=== PATIENT | male | born 1960 | race Caucasian/White ===

== ENCOUNTER 2017-07-11 15:39 | Emergency (ER) | payer MEDICAID ==
[~2017-07-11] VITALS: Ht 185.4 cm; Wt 80.0 kg
[2017-07-11 15:41] VITALS: BP 141/94
[2017-07-11 16:10] LABS: BASOPHILS # (AUTO) 0.09 x10^3/uL (0-0.1); BASOPHILS % (AUTO) 1 % (0-1); EOSINOPHILS # (AUTO) 0.08 x10^3/uL (0-0.4); EOSINOPHILS % (AUTO) 1 % (1-7); LYMPHOCYTES # (AUTO) 2.48 x10^3/uL (1-3.4); LYMPHOCYTES % (AUTO) 28 % (22-44); MD NO; MEAN CORPUSCULAR HEMOGLOBIN 33.8 pg (27.5-34.5); MEAN CORPUSCULAR HGB CONC 34.4 g/dL (33.2-36.2); MEAN CORPUSCULAR VOLUME 98.4 fL (81-97); MEAN PLATELET VOLUME 6.4 fL (7.4-10.4); MONOCYTES # (AUTO) 0.92 x10^3/uL (0.2-0.8); MONOCYTES % (AUTO) 10 % (2-9); NEUTROPHILS # (AUTO) 5.37 x10^3/uL (1.8-6.8); NEUTROPHILS % (AUTO) 60 % (42-75); PLATELET COUNT 412 x10^3/uL (130-400); RED BLOOD COUNT 4.71 x10^6/uL (4.38-5.82); RED CELL DISTRIBUTION WIDTH 12.8 % (9.4-14.8)
[2017-07-11 16:21] LABS: ANION GAP 10 mmol/L (5-15); CALCIUM 8.9 mg/dL (8.5-10.1); CHLORIDE 102 mmol/L (98-107); CREATININE 1.58 mg/dL (0.7-1.3)
== END 2017-07-11 17:50 | disposition home or self-care (01) ==
LOC: ED 17:35
DX: S90.32XA Contusion of left foot, initial encounter (principal); X58.XXXA Exposure to other specified factors, initial encounter; Y93.89 Activity, other specified; Y92.89 Other specified places as the place of occurrence of the external cause; Y99.9 Unspecified external cause status
CPT/HCPCS: 36415; 80048; 85025; 99285

== ENCOUNTER 2020-08-10 02:40 | Observation (INO) | payer MEDICAID, OTHER ==
[~2020-08-10] VITALS: Ht 185.4 cm; Wt 76.8 kg
[2020-08-10] MEDS ORDERED: NITROGLYCERIN SINGLE TAB 0.4 MG SL PRN (03:00)
--- NOTE | 2020-08-10 03:00 | NUR ---
PT BIB EMS FROM LONG [facility] WITH C/O CP STARTING AROUND 0130. PT WAS GIVEN 324 ASA, AND 2 DOSES OF NITRO PUMP OILER. NITRO BROUGHT PAIN DOWN FROM A 10/10 TO A 5-6/10 ACCORDING TO PT. PAIN STARTS ON LEFT SIDE AND RADIATED TO THE RIGHT. PT STATES CP HAPPENED ON FRIDAY WELL AND PT WAS NOT SEEN AT HOSPITAL OR BROUGHT IN AT THAT TIME. PT PULSES 2+, GROSS NEURO INTACT, VSS, PT HAS NO PRIOR OH HX, BUT HX OF SEIZURES AND HTN. ACCORDING TO EMS THIS WEEK PT BP HAS BEEN SIGNIFICANTLY ELEVATED TO THE 200S SYSTOLICALLY. PT TO START NEW MEDICATION FOR BP TODAY. pt placed on spo2/bp/ecg monitoring. provided warm blankets for comfort. tm.
[2020-08-10 03:06] LABS: BASOPHILS % (AUTO) 0 % (0-1); EOSINOPHILS % (AUTO) 2 % (1-7); LYMPHOCYTES % (AUTO) 31 % (22-44); MEAN CORPUSCULAR HEMOGLOBIN 35.3 pg (27.5-34.5); MEAN PLATELET VOLUME 6.3 fL (7.4-10.4); MONOCYTES % (AUTO) 15 % (2-9); NEUTROPHILS % (AUTO) 52 % (42-75); PLATELET COUNT 372 x10^3/uL (130-400); RED BLOOD COUNT 4.37 x10^6/uL (4.38-5.82); RED CELL DISTRIBUTION WIDTH 12.8 % (9.4-14.8)
[2020-08-10 03:12] LABS: MD NO
[2020-08-10] MEDS ORDERED: AMLO-211 PO (03:12)
[2020-08-10] MEDS ORDERED: HYDR12.517 PO (03:12)
[2020-08-10] MEDS ORDERED: LEVE500T22 PO (03:12)
[2020-08-10] MEDS ORDERED: LISI-170 PO (03:12)
[2020-08-10 03:13] LABS: ALANINE AMINOTRANSFERASE 43 U/L (12-78); ALBUMIN 3.5 g/dL (3.4-5.0); ANION GAP 8 mmol/L (5-15); CALCIUM 8.6 mg/dL (8.5-10.1); CHLORIDE 104 mmol/L (98-107); CREATININE 1.17 mg/dL (0.7-1.3)
[2020-08-10 03:18] LABS: ALKALINE PHOSPHATASE 111 U/L (45-117); BILIRUBIN,TOTAL 0.6 mg/dL (0.2-1.0); TOTAL PROTEIN 7.4 g/dL (6.4-8.2); TROPONIN I < 0.015 ng/mL (0.000-0.045)
[2020-08-10] MEDS ORDERED: ONDANSETRON 2MG/ML, 2ML IVPush ONE (04:00)
[2020-08-10] MEDS ORDERED: MORPHINE SULFATE 4 MG/ML, 1ML IVPush PRN (04:00)
--- NOTE | 2020-08-10 04:25 | NUR ---
pt resting on gurney, nad, appears comfortable, monitoring in place, vss, bed in lowest,rails engaged, call light on lap, even and unlabored respirations noted. wctm.
[2020-08-10] MEDS ORDERED: morphine SULFATE 10 MG/ML, 1ML IV PRN (04:30)
[2020-08-10 05:38] VITALS: BP 130/83
[2020-08-10 06:25] LABS: TROPONIN I < 0.015 ng/mL (0.000-0.045)
[2020-08-10] MEDS ORDERED: NITROGLYCERIN 0.4 MG/SPRAY SL PRN (07:30)
[2020-08-10] MEDS ORDERED: ASPIRIN 325 MG TABLET EC PO ONE (07:30)
[2020-08-10] MEDS ORDERED: NITROGLYCERIN 0.4 MG BOTTLE (25 TABS) SL PRN (07:30)
[2020-08-10 07:52] VITALS: BP 138/81
[2020-08-10 08:04] LABS: CHOL/HDL RATIO 3.1; LDL/HDL RATIO 1.6 (0.5-3.0)
[2020-08-10] MEDS ORDERED: SODIUM CHLORIDE FLUSH 10ML SYR IVF SCH (09:00)
[2020-08-10] MEDS ORDERED: REGADENOSON 0.4 MG/5 ML SYRINGE ONE (11:05)
[2020-08-10] MEDS ORDERED: HEPARIN 5,000 UNITS/ML, 1ML SQ SCH (12:00)
[2020-08-10 13:41] VITALS: BP 138/76
[2020-08-10] MEDS ORDERED: ASPI81TA45 PO (14:00)
[2020-08-10 15:12] LABS: TROPONIN I < 0.015 ng/mL (0.000-0.045)
[2020-08-11] MEDS ORDERED: ASPIRIN 325 MG TABLET EC PO SCH (06:00)
== END 2020-08-10 16:01 | disposition home or self-care (01) ==
LOC: ED 04:20 → EDIP 04:51 → INTOOBSV 04:51 → 5SO 05:13
PROVIDERS: ADMIT Family Medicine; ATTEND Family Medicine
DX: R07.89 Other chest pain (principal); I10 Essential (primary) hypertension; G40.909 Epilepsy, unspecified, not intractable, without status epilepticus; F17.200 Nicotine dependence, unspecified, uncomplicated; F12.90 Cannabis use, unspecified, uncomplicated; Z79.899 Other long term (current) drug therapy; Z90.49 Acquired absence of other specified parts of digestive tract
CPT/HCPCS: 36415; 71045; 78452; 80053; 80061; 84484; 85025; 93005; 93017; 96372; 99285; A9502; G0378; J1644; J2785